=== PATIENT | female | born 1945 | race Caucasian/White ===

== ENCOUNTER 2024-03-02 22:23 | Emergency (ER) | payer OTHER ==
[2024-03-02 23:05] LABS: Absolute Basophils 0.1 K/uL (0-0.5); Absolute Eosinophils 0.2 K/uL (0-0.5); Absolute Lymphocytes (CBC) 2.1 K/uL (0.7-4.9); Basophils % 1.5 % (0-1.3); Eosinophils % 2.2 % (0-4.4); Hematocrit 39.6 % (36.0-45.0); Hemoglobin 13.3 g/dL (12.0-15.0); Lymphocytes % 22.6 % (15.3-44.8); MCH 28.5 pg (27.0-35.0); MCHC 33.6 g/dL (32.0-36.0); MCV 84.8 fL (80-100); MPV 8.3 fL (7.6-11.3); Monocytes % 10.5 % (3.3-12.3); Neutrophils % 63.2 % (41.7-73.7); Nucleated Red Blood Cells % 0.2 % (0-0); Platelets 162 thou/uL (152-406); RBC Red Blood Cell Count 4.67 M/uL (3.86-4.86); Red Cell Distribution Width 14.6 % (12.1-15.2)
[2024-03-02 23:25] LABS: Troponin High Sensitivity 8.4 pg/mL (<58.9)
[2024-03-02 23:46] LABS: Specific Gravity 1.012 (1.005-1.030); Sqamous Epithelial <5 /HPF (None Seen); Urine Bacteria None Seen /HPF (<20); Urine Bilirubin NEGATIVE (Negative); Urine Blood Trace (Negative); Urine Clarity Turbid (Clear); Urine Color Light-Yellow (Yellow); Urine Culture Reflex Order REFLEXED; Urine Glucose NEGATIVE (Negative); Urine Ketones NEGATIVE (Negative); Urine Micro Reflex YN NO BILL MICROSCOPIC; Urine Nitrite NEGATIVE (Negative); Urine Protein NEGATIVE (Negative); Urine RBC <5 /HPF (None Seen); Urine Urobilinogen Normal (Normal)
--- NOTE | 2024-03-03 00:37 | EDPHYS ---
Physician Documentation [facility] Name: Kasia Maldonado Age: 78 yrs Sex: Female : 1945 Arrival Date: 03/02/2024 Time: 22:23 Bed 5 Private MD: ED Physician Stanton Amato HPI: 03/02 22:46 This 78 yrs old Female presents to ER via EMS with complaints of generalized ec2 weakness. 22:46 Patient arrives today for evaluation of generalized weakness. Patient reports that she ec2 has been generally weak for the past several weeks. States that she has been on chronic steroids, states that it finally "collapsed my system ". She reports that she has been generally weak, has chronic shortness of breath, takes multiple medications.. Historical: - Allergies: 22:39 PENICILLINS; ha1 22:39 statins; ha1 22:39 Keflex; ha1 22:39 Biaxin; ha1 - PMHx: 22:39 Asthma; Heart murmur; ha1 - Immunization history:: Adult Immunizations not up to date. - Infectious Disease History:: Denies. - Social history:: Smoking status: Patient/guardian denies using tobacco, the patient reports quitting approximately 1986 years ago. ROS: 22:46 Constitutional: as per hpi ec2 Exam: 22:46 Constitutional: GEN: NAD Head: atraumatic Eyes: EOMI Ears: External ears are ec2 normal. CV: regular rate LUNGS: no respiratory distress, no significant wheezes, no rales, no rhonchi. ABD: non-distended SKIN: no evidence of rashes MSK: no evidence of trauma NEURO: moves all extremities equally Vital Signs: 22:34 BP 165 / 102; Pulse 98; Resp 20; Temp 97.6(T); Pulse Ox 99% on R/A; Weight 93.44 kg; ha1 Height 5 ft. 5 in. ; 23:40 BP 165 / 96; Pulse 96; Resp 17 S; Pulse Ox 97% on R/A; ha1 03/03 00:12 Pulse 92; Pulse Ox 97% on R/A; tm6 00:28 BP 164 / 96; Pulse 99; Resp 17 S; Pulse Ox 97% on R/A; ha1 03/02 22:34 Body Mass Index 34.28 (93.44 kg, 165.1 cm) ha1 MDM: 03/02 22:40 Patient medically screened. ec2 22:46 Data reviewed: vital signs. ED course: Patient arrives today for evaluation of ec2 generalized weakness. Examination remarkable for nontoxic individual is otherwise in no acute distress with reassuring hemodynamics. Will obtain lab work, chest x-ray, EKG. Differential diagnosis includes anemia, electrolyte disturbances, pneumonia.. 23:05 ED course: EKG independently reviewed and interpreted by me, shows normal sinus rhythm, ec2 rate of 92, no acute ST segment elevations, nonconcerning intervals, nonspecific T wave inversions noted in the inferior leads, LVH noted.. 03/03 00:01 ED course: Metabolic profile is reassuring, CBC is reassuring, urine is with leuk ec2 esterase and WBC, patient does complain of increased urinary frequency. I will start the patient on antibiotics for UTI. Will discharge home and have follow-up with primary care doctor. Return precautions given. . 03/02 22:46 Order name: Basic Metabolic Panel; Complete Time: 00:01 ec2 03/02 22:46 Order name: CBC with Diff; Complete Time: 00:01 ec2 03/02 22:46 Order name: Troponin HS; Complete Time: 00:01 ec2 03/02 22:46 Order name: UAM; Complete Time: 00: ec2 03/02 23:50 Order name: Urine Culture EDVT 03/02 22:46 Order name: XRAY Chest (1 view) ec2 03/02 22:46 Order name: EKG; Complete Time: 22:46 ec2 03/02 22:46 Order name: Cardiac monitoring; Complete Time: 22:47 ec2 03/02 22:46 Order name: EKG - Nurse/Tech; Complete Time: 23:07 ec2 03/02 22:46 Order name: IV Saline Lock; Complete Time: 22:47 ec2 03/02 22:46 Order name: Labs collected and sent; Complete Time: 22:47 ec2 03/02 22:46 Order name: O2 Per Protocol; Complete Time: 22:47 ec2 03/02 22:46 Order name: O2 Sat Monitoring; Complete Time: 23:07 ec2 Administered Medications: 00:40 Drug: Macrobid PO 100 mg PO once; administer with food Route: PO; [facility] 01:00 Follow up: Response: No adverse reaction ha1 Disposition Summary: 03/03/24 00:36 Discharge Ordered Notes: Location: Home ec2 Condition: Stable ec2 Diagnosis - UTI/ Urinary tract infection, site not specified ec2 - Weakness ec2 Followup: ec2 - With: Private Physician - When: - Reason: Re-evaluation by your physician Discharge Instructions: - Discharge Summary Sheet ec2 - Urinary Tract Infection, Adult, [id number] ec2 Forms: - Medication Reconciliation Form ec2 - Antibiotic Education ec2 - Prescription Opioid Use ec2 - Patient Portal Instructions ec2 - Leadership Thank You Letter ec2 Prescriptions: - Macrobid 100 mg Oral Capsule - take 1 capsule ORAL route every 12 hours for 7 days; 14 capsule; Refills: 0, ec2 Product Selection Permitted Signatures: Dispatcher [employer] Sugar Lucoi RN RN ha1 Stanton Amato MD MD ec2
--- NOTE | 2024-03-03 00:37 | ER ---
Nurse's Notes [facility] Name: Kasia Maldonado Age: 78 yrs Sex: Female : 1945 Arrival Date: 03/02/2024 Time: 22:23 Bed 5 Private MD: Diagnosis: UTI/ Urinary tract infection, site not specified;Weakness Presentation: 03/02 22:34 Chief complaint: EMS states: 78 year old female reports SOB, she thinks it is her ha1 asthma triggering her symptoms. on our arrival she was diaphoretic, glucose at 174. Oxygen 99% in room air. 22:34 Coronavirus screen: Vaccine status: Patient reports being unvaccinated. Ebola Screen: ha1 No symptoms or risks identified at this time. Initial Sepsis Screen: Does the patient meet any 2 criteria? No. Patient's initial sepsis screen is negative. Does the patient have a suspected source of infection? No. Patient's initial sepsis screen is negative. Risk Assessment: Do you want to hurt yourself or someone else? Patient reports no desire to harm self or others. Onset of symptoms was March 02, 2024. 22:34 Method Of Arrival: EMS: [facility] ha1 22:34 Acuity: TATO 3 ha1 Triage Assessment: 22:34 General: Appears uncomfortable, Behavior is cooperative. Pain: Denies pain. Neuro: ha1 Level of Consciousness is awake, alert, obeys commands, Oriented to person, place, time, situation. Cardiovascular: Capillary refill < 3 seconds Patient's skin is warm and dry. Respiratory: Airway is patent Respiratory effort is even, unlabored, Respiratory pattern is regular, symmetrical. Respiratory: Reports shortness of breath at rest. GI: No signs and/or symptoms were reported involving the gastrointestinal system. Abdomen is round obese. : Reports frequent urination. Derm: Skin is pink, warm \T\ dry. Musculoskeletal: Circulation, motion, and sensation intact. Historical: - Allergies: 22:39 PENICILLINS; ha1 22:39 statins; ha1 22:39 Keflex; ha1 22:39 Biaxin; ha1 - PMHx: 22:39 Asthma; Heart murmur; ha1 - Immunization history:: Adult Immunizations not up to date. - Infectious Disease History:: Denies. - Social history:: Smoking status: Patient/guardian denies using tobacco, the patient reports quitting approximately 1986 years ago. Screenin:47 Abuse screen: Denies threats or abuse. Denies injuries from another. Nutritional ha1 screening: No deficits noted. Tuberculosis screening: No symptoms or risk factors identified. 03/03 00:58 [facility] ED Fall Risk Assessment (Adult) History of falling in the last 3 months, ha1 including since admission No falls in past 3 months (0 pts) Confusion or Disorientation No (0 pts) Intoxicated or Sedated No (0 pts) Impaired Gait No (0 pts) Mobility Assist Device Used No (0 pt) Altered Elimination Score/Fall Risk Level 0 - 2 = Low Risk Oriented to surroundings, Maintained a safe environment, Educated pt \T\ family on fall prevention, incl call for assistance when getting out of bed, Hourly rounding (assess needs \T\ fall precautionary measures) done. Assessment: 03/02 22:47 Reassessment: see triage assessment. ha1 23:40 Reassessment: Patient and/or family updated on plan of care and expected duration. Pain ha1 level reassessed. Patient is alert, oriented x 3, equal unlabored respirations, skin warm/dry/pink. 03/03 00:45 Reassessment: Patient and/or family updated on plan of care and expected duration. Pain ha1 level reassessed. Patient is alert, oriented x 3, equal unlabored respirations, skin warm/dry/pink. Vital Signs: 03/02 22:34 BP 165 / 102; Pulse 98; Resp 20; Temp 97.6(T); Pulse Ox 99% on R/A; Weight 93.44 kg; ha1 Height 5 ft. 5 in. ; 23:40 BP 165 / 96; Pulse 96; Resp 17 S; Pulse Ox 97% on R/A; ha1 03/03 00:12 Pulse 92; Pulse Ox 97% on R/A; tm6 00:28 BP 164 / 96; Pulse 99; Resp 17 S; Pulse Ox 97% on R/A; ha1 03/02 22:34 Body Mass Index 34.28 (93.44 kg, 165.1 cm) ha1 ED Course: 03/02 22:34 Patient arrived in ED. lg3 22:34 Arm band placed on right wrist. ha1 22:39 Stanton Amato MD is Attending Physician. ec2 22:39 Triage completed. ha1 22:46 Inserted saline lock: 20 gauge in right antecubital area, using aseptic technique. ha1 Blood collected. 23:05 EKG done, by ED staff, reviewed by Stanton Amato MD. tm6 23:22 XRAY Chest (1 view) In Process Unspecified. EDIN 03/03 00:12 Jitendra Henry, RN is Primary Nurse. tm6 00:13 Patient has correct armband on for positive identification. Placed in gown. Bed in low tm6 position. Call light in reach. Side rails up X2. Provided Education on: use of call [place]. Client placed on continuous cardiac and pulse oximetry monitoring. NIBP monitoring applied. Pulse ox on. NIBP on. Door closed. Noise minimized. Warm blanket given. 00:59 No provider procedures requiring assistance completed. IV discontinued, intact, ha1 bleeding controlled, No redness/swelling at site. Pressure dressing applied. Administered Medications: 00:40 Drug: Macrobid PO 100 mg PO once; administer with food Route: PO; ha1 01:00 Follow up: Response: No adverse reaction ha1 Medication: 00:13 VIS not applicable for this client. tm6 Outcome: 00:36 Discharge ordered by . ec2 00:59 Discharged to home ambulatory, ha1 00:59 Condition: stable 00:59 Discharge instructions given to patient, Instructed on discharge instructions, follow up and referral plans. Demonstrated understanding of instructions, follow-up care, Prescriptions given X 1, 01:00 Patient left the ED. ha1 Signatures: Dispatcher [employer] Abigail Mayorga RN RN 3 [place] RN RN 1 Stanton Amato MD MD 2 Jitenrda Henry, MIGUEL RN tm6
[2024-03-03] MEDS ORDERED: NITROFURAN MACRO 100 MG CAP PO ONE (00:43)
[2024-03-03 07:35] VITALS: TEMP 97.6
[2024-03-03 07:58] VITALS: BP 164/96; O2SAT 97
--- NOTE | 2024-03-03 17:27 | RAD REPORT ---
EXAM DESCRIPTION: RAD - Chest Single View - 03/02/2024 11:20 pm CLINICAL HISTORY: 78-year-old female with cough. TECHNIQUE: Single view, AP portable chest was obtained. COMPARISON: None. FINDINGS: Unremarkable cardiac and mediastinal silhouette. Heart size is normal. Lungs are clear without focal opacity, pneumothorax or pleural effusions. The visualized bones are within normal limits. IMPRESSION: No acute cardiopulmonary abnormalities. Electronically signed by: Marlen Jackson MD 03/02/2024 11:56 PM CDT Due to temporary technical issues with the PACS/Fluency reporting system, reports are being signed by the in house radiologists without review as a courtesy to insure prompt reporting. The interpreting radiologist is fully responsible for the content of the report.
--- NOTE | 2024-03-04 13:54 | EKG ---
Test Date: 2024-03-02 Test Time: 23:03:44 Information Security Consultant: JUDY MEASUREMENT RESULTS: Intervals: Rate: 95 IL: 146 QRSD: 90 QT: 356 QTc: 447 [place]: P: 52 IL: 146 QRS: 20 T: 1 INTERPRETIVE STATEMENTS: Normal sinus rhythm RSR' or QR pattern in V1 suggests right ventricular conduction delay Voltage criteria for left ventricular hypertrophy T wave abnormality, consider inferior ischemia Abnormal ECG No previous ECG available for comparison Electronically Signed On 03-04-24 13:49:55 CDT by Jay Reyna
--- NOTE | 2024-03-04 13:54 | EKG ---
Test Date: 2024-03-02 Test Time: 23:04:14 Merchandise Buyer: JUDY MEASUREMENT RESULTS: Intervals: Rate: 92 AK: 148 QRSD: 86 QT: 344 QTc: 425 [place]: P: 46 AK: 148 QRS: 18 T: -4 INTERPRETIVE STATEMENTS: Normal sinus rhythm Voltage criteria for left ventricular hypertrophy ST & T wave abnormality, consider inferior ischemia Abnormal ECG Compared to ECG 03/02/2024 23:03:44 ST (T wave) deviation now present T-wave abnormality no longer present Possible ischemia still present Electronically Signed On 03-04-24 13:49:53 CDT by Jay Reyna
== END 2024-03-03 01:00 | disposition home or self-care (01) ==
LOC: ER 22:23
DX: N39.0 Urinary tract infection, site not specified (principal)
CPT/HCPCS: 36415; 71045; 80048; 81001; 84484; 85025; 87086; 87088; 93005